=== PATIENT | female | born 1980 | race Two or more races ===

== ENCOUNTER → 2018-01-14 | Outpatient (REF) | payer OTHER ==
--- NOTE | 2018-01-14 17:19 | RADIOLOGY IMAGING REPORT ---
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 COMPARISON: None available FINDINGS: Cardiomediastinal silhouette and pulmonary vessels within normal limits. There is no focal infiltrate or lobar consolidation. There is no pneumothorax or pleural effusion. No nodule. Upper abdomen is unremarkable. No acute bony abnormality. IMPRESSION: 1. No indication of acute or active disease. Report Dictated By: Santos Fraser at 01/14/2018 5:13 PM Report E-Signed By: Santos Fraser at 01/14/2018 5:15 PM WSN:[email or web address]
== END ==
LOC: RAD 16:13 → EDSTATUS 16:14 → RAD 16:15
PROVIDERS: ATTEND Internal Medicine
DX: R76.11 Nonspecific reaction to tuberculin skin test without active tuberculosis (principal)
CPT/HCPCS: 71046

== ENCOUNTER 2018-08-24 12:34 | Emergency (ER) | payer OTHER ==
--- NOTE | 2018-08-24 12:50 | ER Report ---
History and Physical Time Seen By MD: 12:42 Hx. of Stated Complaint: PATIENT ROLLED HER ANKLE YESTERDAY HPI/ROS CHIEF COMPLAINT: Ankle injury HISTORY OF PRESENT ILLNESS: This is a 38-year-old female who presents to the emergency department for a left ankle injury. Patient states that yesterday she was hiking and some shoes that had a slick bottom she slipped and her foot rolled inward causing discomfort to the left ankle. She does have some swelling to the lateral malleolus, CMS intact. No bruising or any other complaints at this time. No fevers. REVIEW OF SYSTEMS: Respiratory: No cough, no dyspnea. Cardiovascular: No chest pain, no palpitations. Gastrointestinal: No vomiting, no abdominal pain. Musculoskeletal: As above. Allergies: Coded Allergies: No Known Drug Allergies (Unverified , 08/24/18) Home Meds Active Scripts Cyclobenzaprine Hcl (CYCLOBENZAPRINE HCL) 10 Mg Tablet, 5-10 MG PO TID PRN for MUSCLE SPASMS, #9 TAB Prov:ALEXA CHINCHILLA GRAPPLER- 08/24/18 Past Medical/Surgical History The patient has no significant past medical or surgical history. Reviewed Nurses Notes: Yes Constitutional Vital Sign - Last 24 Hours 08/24/18 08/24/18 08/24/18 08/24/18 12:34 12:40 12:41 13:04 Temp 98.7 Pulse ??? 86 88 Resp 20 B/P (MAP) 125/94 (104) 125/94 Pulse Ox 94 95 O2 Delivery Room Air 08/24/18 08/24/18 08/24/18 13:34 14:03 14:04 Pulse 80 80 B/P (MAP) 117/82 (94) Pulse Ox 95 95 Physical Exam General Appearance: The patient is alert, has no immediate need for airway protection and no current signs of toxicity. Eyes: Pupils equal and round no injection. Respiratory: Chest is non tender, lungs are clear to auscultation. Cardiac: regular rate and rhythm. Gastrointestinal: Abdomen is soft and non tender, no masses, bowel sounds normal. Musculoskeletal: Neck: Neck is supple and non tender. Extremities pain, swelling to the left lateral malleolus. Skin: No rashes or lesions. DIFFERENTIAL DIAGNOSIS: After history and physical exam differential diagnosis was considered for fracture, ankle sprain, subluxation. Medical Decision Making EKG/Imaging Imaging PATIENT NAME: Lea Contreras : 1980 MR: [id number] V: [id number] EXAM DATE: ORDERING PHYSICIAN: ALEXA CHINCHILLA TECHNOLOGIST: Location: [facility] Patient: Lea Contreras : 1980 Visit/Account:[id number] Date of Sevice: 08/24/2018 Technique: ANKLE 3 VIEW MIN LEFT HISTORY: slip and twisted ankle Comparison studies: None FINDINGS: There is no acute fracture. The ankle mortise is preserved. Noted is a small calcaneal spur and Achilles tendon enthesophyte. IMPRESSION: 1. No acute osseous process. Report Dictated By: Ashwin Lu DO at 08/24/2018 1:45 PM Report E-Signed By: Ashwin Lu DO at 08/24/2018 1:45 PM WSN:[facility] ED Course/Re-evaluation ED Course The patient was admitted to a room. A history of square obtained. Differential diagnoses were considered. An x-ray of the left ankle is negative for any acute osseous center maladies. I did review this with the patient. I did tell her this is an ankle sprain, she was placed in an air stirrup, instructed to keep it elevated, take anti-inflammatories as needed, Flexeril for severe pain. She had no other questions or concerns at this time and discharged home. Decision to Disposition Date: August 24, 2018 Decision to Disposition Time: 13:57 Depart Departure Latest Vital Signs Vital Signs Date Time Temp Pulse Resp B/P (MAP) Pulse Ox O2 Delivery O2 Flow Rate FiO2 08/24/18 14:04 80 95 08/24/18 14:03 117/82 (94) 08/24/18 12:41 98.7 20 Room Air Impression: Primary Impression: Left ankle sprain Condition: Improved Disposition: HOME OR SELF-CARE Referrals: [facility] New Scripts Cyclobenzaprine Hcl (CYCLOBENZAPRINE HCL) 10 Mg Tablet 5-10 MG PO TID PRN for MUSCLE SPASMS, #9 TAB Prov: ALEXA CHINCHILLA GRAPPLER- 08/24/18 Departure Forms: ER Transition Record, Medications Reconciliation, Off Work/School Form, School or Work Release?: Work Number of days to be released: 2 Patient Portal Information Patient Instructions: Ankle Sprain (ED) Additional Instructions: Keep the foot elevated to the level of the heart. Take ibuprofen and/or Tylenol as needed for pain. Take Flexeril for severe pain. Drink plenty of water. Get plenty of rest. Return to ER for any concerns or worsening symptoms. If no improvement within 7 days' please follow up with [facility] for reevaluation. Problem Qualifiers Primary Impression: Left ankle sprain Encounter type: initial encounter Involved ligament of ankle: unspecified ligament Qualified Codes: S93.402A - Sprain of unspecified ligament of left ankle, initial encounter ALEXA CHINCHILLA-JERARDO August 24, 2018 12:50
[2018-08-24] MEDS ORDERED: KETOROLAC 30 MG/ML VIAL IM ONE (12:55)
--- NOTE | 2018-08-24 13:50 | RADIOLOGY IMAGING REPORT ---
FACILITY: [facility] PATIENT NAME: Lea Contreras : 1980 MR: [id number] V: [id number] EXAM DATE: ORDERING PHYSICIAN: ALEXA CHINCHILLA TECHNOLOGIST: Location: [facility] Patient: Lea Contreras : 1980 Visit/Account:[id number] Date of Sevice: 08/24/2018 Technique: ANKLE 3 VIEW MIN LEFT HISTORY: slip and twisted ankle Comparison studies: None FINDINGS: There is no acute fracture. The ankle mortise is preserved. Noted is a small calcaneal sp ur and Achilles tendon enthesophyte. IMPRESSION: 1. No acute osseous process. Report Dictated By: Ashwin Lu DO at 08/24/2018 1:45 PM Report E-Signed By: Ashwin Lu DO at 08/24/2018 1:45 PM WSN:[email or web address]
[2018-08-24] MEDS ORDERED: CYCL10TA29 PO (13:58)
[2018-08-24 14:03] VITALS: BP 117/82
== END 2018-08-24 14:07 | disposition home or self-care (01) ==
LOC: ER 13:09
DX: S93.402A Sprain of unspecified ligament of left ankle, initial encounter (principal)
CPT/HCPCS: 73610; 96372; 99283; J1885; L1930